=== PATIENT | male | born 1960 | race Two or more races ===

== ENCOUNTER 2020-01-28 13:47 | Emergency (ER) | payer BC ==
--- NOTE | 2020-01-28 14:21 | EDM.PDOC ---
ED HPI GENERAL MEDICAL PROBLEM - General Chief Complaint: Genitourinary Problem Stated Complaint: BLOOD IN PEE Time Seen by Provider: 01/28/20 13:59 - History of Present Illness INITIAL COMMENTS - FREE TEXT/NARRATIVE: History of present illness: This 59-year-old diabetic with a history of BPH presents with 4 days of dysuria and suprapubic discomfort today he noticed blood in his urine once he denies any fever chills no nausea or vomiting he has not had this kind of pain before nothing seems to make it better or worse he does admit to having some difficulty urinating has to get up twice at night to pee he is taking tamsulosin. No back pain Review of systems: As per history of present illness and below otherwise all systems reviewed and negative. Past medical history: As per history of present illness and as reviewed below otherwise noncontributory. Surgical history: As per history of present illness and as reviewed below otherwise noncontributory. Social history: No reported history of drug or alcohol abuse. Family history: As per history of present illness and as reviewed below otherwise noncontributory. Physical exam: HEENT: Atraumatic, normocephalic, pupils reactive, negative for conjunctival pallor or scleral icterus, mucous membranes moist, throat clear, neck supple, nontender, trachea midline. Lungs: Clear to auscultation, breath sounds equal bilaterally, chest nontender. Heart: S1S2, regular, negative for clicks, rubs, or JVD. Abdomen: Soft, nondistended, nontender. Negative for masses or hepatosplenomegaly. Negative for costovertebral tenderness. Pelvis: Stable nontender. Genitourinary: Deferred. Rectal: Deferred. Extremities: Atraumatic, negative for cords or calf pain. Neurovascular unremarkable. Neuro: Awake, alert, oriented. Cranial nerves II through XII unremarkable. Cerebellum unremarkable. Motor and sensory unremarkable throughout. Exam nonfocal. Diagnostics: [] Therapeutics: [] Impression: [] Plan: Alysis will be sent and the patient will be reassessed [] Definitive disposition and diagnosis as appropriate pending reevaluation and review of above. Penis Pain Score (Numeric/FACES): 3 - Related Data Allergies Allergy/AdvReac Type Severity Reaction Status Date / Time No Known Allergies Allergy Verified 01/28/20 14:16 Home Meds: Home Meds RX: metFORMIN [Glucophage] 500 mg PO BID 01/28/20 [History] ED ROS GENERAL - Review of Systems Review Of Systems: See Below ED EXAM, GENERAL - Physical Exam Exam: See Below Course - Vital Signs Text/Narrative:: Patient is comfortable no pain in the ED. He was reexamined at 3:20 PM he had a urine study showing some hematuria but no evidence of infection recommend he be referred to urology for further evaluation of hematuria. Discharged home referred to urology. Last Recorded V/S: Last Vital Signs Temp 36.8 C 01/28/20 14:17 Pulse 82 01/28/20 14:17 Resp 18 01/28/20 14:17 BP 126/70 01/28/20 14:17 Pulse Ox 98 01/28/20 14:17 - Orders/Labs/Meds Labs: Laboratory Tests 01/28/20 Range/Units 13:55 Urine Color DARK YELLOW Urine Appearance SLT CLOUDY Urine pH 5.0 (5.0-8.0) Ur Specific [place] >= 1.030 (1.001-1.035) Urine Protein 30 H (NEGATIVE) mg/dL Urine Glucose (UA) NEGATIVE (NEGATIVE) mg/dL Urine Ketones TRACE H (NEGATIVE) mg/dL Urine Occult Blood LARGE H (NEGATIVE) Urine Nitrite NEGATIVE (NEGATIVE) Urine Bilirubin NEGATIVE (NEGATIVE) Urine Urobilinogen 0.2 (<2.0) EU/dL Ur Leukocyte Esterase NEGATIVE (NEGATIVE) Urine RBC 200-250 (0-2/HPF) Urine WBC 2-4 (0-5/HPF) Ur Epithelial Cells RARE (NONE-FEW) Amorphous Sediment FEW (NEGATIVE) Urine Bacteria FEW (NEGATIVE) Urine Mucus FEW (NONE-MOD) Departure - Departure Time of Disposition: 15:26 Disposition: Home, Self-Care 01 Condition: Good Clinical Impression: Hematuria Qualifiers: Hematuria type: gross Qualified Code(s): R31.0 - Gross hematuria - Discharge Information *PRESCRIPTION DRUG MONITORING PROGRAM REVIEWED*: Not Applicable *COPY OF PRESCRIPTION DRUG MONITORING REPORT IN PATIENT SUNSHINE: Not Applicable Instructions: Hematuria, Adult Referrals: PCP,None [Primary Care Provider] - Forms: ED Department Discharge Additional Instructions: The following information is given to patients seen in the emergency department who are being discharged to home. This information is to outline your options for follow-up care. We provide all patients seen in our emergency department with a follow-up referral. The need for follow-up, as well as the timing and circumstances, are variable depending upon the specifics of your emergency department visit. If you don't have a primary care physician on staff, we will provide you with a referral. We always advise you to contact your personal physician following an emergency department visit to inform them of the circumstance of the visit and for follow-up with them and/or the need for any referrals to a consulting specialist. The emergency department will also refer you to a specialist when appropriate. This referral assures that you have the opportunity for follow-up care with a specialist. All of these measure are taken in an effort to provide you with optimal care, which includes your follow-up. Under all circumstances we always encourage you to contact your private physician who remains a resource for coordinating your care. When calling for follow-up care, please make the office aware that this follow-up is from your recent emergency room visit. If for any reason you are refused follow-up, please contact the [facility] Emergency Department at and asked to speak to the emergency department charge nurse. [facility] - Urology [address] [place] [id number] Sepsis Event Note (ED) - Evaluation Sepsis Screening Result: No Definite Risk - Focused Exam Vital Signs: Vital Signs Temp Pulse Resp BP Pulse Ox 01/28/20 14:17 36.8 C 82 18 126/70 98
== END 2020-01-28 15:30 | disposition home or self-care (01) ==
LOC: MW.ED 13:47
DX: R31.0 Gross hematuria (principal)
CPT/HCPCS: 81001; 99282; 99283

== ENCOUNTER 2021-12-26 19:48 | Emergency (ER) | payer BC ==
[2021-12-26] MEDS ORDERED: Ketorolac 60 MG/2 ML SDV IM ONE (20:56)
[2021-12-26] MEDS ORDERED: traMADol 50 MG Tab PO ONE (20:59)
[2021-12-26 21:40] LABS: BLOOD UREA NITROGEN,BUN 20 mg/dL (7.0-18.0); CARBON DIOXIDE,CO2 28.9 mmol/L (21.0-32.0); CHLORIDE,CL 98 mmol/L (98-107); GLUCOSE RANDOM 363 mg/dL (74-106); POTASSIUM,K 4.6 mmol/L (3.5-5.1); SODIUM,NA 132 mmol/L (136-148)
[2021-12-26] MEDS ORDERED: Ketorolac 30 MG/ML SDV IM ONE (22:28)
[2021-12-26] MEDS ORDERED: Tamsulosin 0.4 MG Cap.ER PO STA (23:40)
== END 2021-12-27 00:15 | disposition home or self-care (01) ==
LOC: MW.ED 19:48
DX: N13.2 Hydronephrosis with renal and ureteral calculous obstruction (principal); E11.9 Type 2 diabetes mellitus without complications; Z79.84 Long term (current) use of oral hypoglycemic drugs; Z79.899 Other long term (current) drug therapy
CPT/HCPCS: 36415; 74176; 80053; 81001; 85025; 96372; 99284; A9270; J1885

== ENCOUNTER 2024-10-22 11:41 | Emergency (ER) | payer BC ==
[2024-10-22] MEDS: traMADol 50 MG Tab PO STA (13:46)
== END 2024-10-22 22:15 | disposition home or self-care (01) ==
LOC: MW.ED 11:41
DX: S02.40FA Zygomatic fracture, left side, initial encounter for closed fracture (principal); S06.5X1A Traumatic subdural hemorrhage with loss of consciousness of 30 minutes or less, initial encounter; E04.1 Nontoxic single thyroid nodule; I10 Essential (primary) hypertension; E11.9 Type 2 diabetes mellitus without complications; Z79.84 Long term (current) use of oral hypoglycemic drugs; Z79.899 Other long term (current) drug therapy; Z75.8 Other problems related to medical facilities and other health care; W10.8XXA Fall (on) (from) other stairs and steps, initial encounter
CPT/HCPCS: 70450; 70486; 72125; 72128; 73030; 99284; A9270